=== PATIENT | female | born 1960 | race Caucasian/White ===

== ENCOUNTER 2022-12-30 22:48 | Emergency (ER) | payer OTHER, SELFPAY ==
--- NOTE | 2022-12-30 22:51 | ECG_ITS ---
Test Reason : CHEST PAIN Blood Pressure : / mmHG Vent. Rate : 077 BPM Atrial Rate : 077 BPM P-R Int : 132 ms QRS Dur : 084 ms QT Int : 374 ms P-R-T Axes : 039 072 033 degrees QTc Int : 423 ms Normal sinus rhythm Nonspecific ST abnormality Abnormal ECG No previous ECGs available Referred By: Generic ED Physician Electronically Signed By:ABEL CABRERA MD
[2022-12-30 22:53] VITALS: BP 134/87; PULSE 75; RESP 20; TEMP 36.8; O2SAT 96; BMI 24.3
[2022-12-30 23:12] LABS: MANUAL DIFF FLAG NO
[2022-12-30 23:14] LABS: Basophils Percent Auto 0.2 % (0-2); Eosinophils Absolute Auto 0.4 X10*3/uL (0.0-0.4); Eosinophils Percent Auto 4.9 % (0-4); Hematocrit 38.3 % (37.0-47.0); Hemoglobin 12.7 g/dl (12.0-16.0); Imm Gran Abs Auto 0.02 X10*3/uL (0.00-0.03); Imm Gran Pct Auto 0.2 % (0.0-0.4); Lymphocytes Absolute Auto 2.8 X10*3/uL (1.2-4.9); Lymphocytes Percent Auto 31.3 % (20-40); Mean Corpuscular HGB Conc 33.2 g/dl (31.0-35.0); Mean Corpuscular Hemoglobin 30.2 pg (27.0-33.0); Mean Corpuscular Volume 91.2 fL (80.0-98.0); Mean Platelet Volume 8.4 fL (9.4-12.3); Monocytes Absolute Auto 0.9 X10*3/uL (0.1-1.2); Monocytes Percent Auto 9.6 % (2-11); Neutrophils Absolute Auto 4.8 x10*3/uL (2.0-8.3); Neutrophils Percent Auto 53.8 % (45-73); Platelet Count 245 X10*3/uL (160-400); White Blood Count 8.8 X10*3/uL (4.8-10.8)
[2022-12-30 23:30] LABS: Alanine Aminotransferase 22 U/L (0-31); Albumin Level 4.3 g/dL (3.5-5.0); Alkaline Phosphatase 85 U/L (39-117); Anion Gap 12 (12-20); Aspartate Amino Transferase 17 U/L (5-31); Bilirubin Total 0.2 mg/dL (0.0-1.0); Blood Urea Nitrogen 14 mg/dL (9-16); Calcium 9.4 mg/dL (8.4-10.2); Carbon Dioxide 26 mmol/L (22-29); Chloride 106 mmol/L (96-108); Creatinine Clr Calc Pharmacy 69.3; Estimated Glomerular Filt Rate > 60; Glucose Random 120 mg/dL (60-115); Potassium 3.9 mmol/L (3.3-5.1); Sodium 140 mmol/L (135-145); Total Protein 7.2 g/dL (6.5-8.0)
--- NOTE | 2022-12-30 23:34 | ED.CHESTPAIN ---
HPI - Chest Pain General Chief Complaint: Chest Pain Stated Complaint: heart attack? Time Seen by Provider: 12/30/22 23:31 Source: patient Mode of arrival: ambulatory Limitations: no limitations History of Present Illness HPI narrative: Patient with history of anxiety, coronary artery disease status post stent placement 2010 for atypical chest pain comes here for feeling of bees under the skin starting from the left arm with the left lower extremity which seems to be same when she had stent placed in 2010 denies any chest patient seems very anxious but she says that happened after she started having this feeling no shortness of breath no chest pain no diaphoresis no nausea/vomiting Related Data Allergies Allergy/AdvReac Type Severity Reaction Status Date / Time Penicillins [PCN] Allergy Unknown Verified 12/30/22 22:53 sulfamethoxazole Allergy Unknown Verified 12/30/22 22:53 [From Bactrim] trimethoprim [From Bactrim] Allergy Unknown Verified 12/30/22 22:53 Review of Systems Review of Systems: Yes all other systems are reviewed and are negative [facility] Past Medical History Medical History (Updated 12/31/22 @ 02:02 by Florin Tyler MD) Coronary disease Anxiety Surgical History (Updated 12/31/22 @ 00:03 by Florin Tyler MD) Stented coronary artery Social History Social History Smoked in Last 30 Days: Yes Use of substances other than those prescribed or required for medical reasons: No Advance Directives: No Advance Directives Information Provided: Yes Physical Exam Vital Signs: Vital Signs: Last Vital Signs Temp 97.9 F 12/31/22 02:07 Pulse 61 12/31/22 02:07 Resp 16 12/31/22 02:07 BP 111/56 L 12/31/22 02:07 Pulse Ox 97 12/31/22 00:04 O2 Del Method Room Air 12/31/22 00:04 BMI result Body Mass Index 24.3 Appearance: Alert. Oriented X3. No acute distress. Anxious Eyes: PERRLA, no pallor ENT: Pharynx normal. Oral Mucosa moist Neck: Normal inspection. Neck supple. CVS: Normal heart rate and rhythm. Pulses normal. Respiratory: No respiratory distress. Equal air entry bilateral, no wheezing/rales/rhonchi Abdomen: Soft and nontender. Bowel sounds are present, no mass palpable, no CVA tenderness Skin: Skin warm and dry. Normal skin color. Normal skin turgor. Extremities: No lower extremity edema. No calf tenderness Neuro: Oriented X 3. No motor deficit. Medical Decision Making Medical Decision Making [facility] Narrative: Atypical chest pain 2 sets of cardiac enzymes negative EKG without ischemic changes discharge patient home advised to follow with PCP Differential Diagnosis Differential Diagnoses: The differential diagnosis associated with the presentation includes ACS/anxiety Admission/Observation Consideration of admission/observation: Escalation of care including admission/observation considered Lab Data [facility] Lab Attestation statement: I reviewed the patient's lab results. 12/30/22 23:07 12/30/22 23:07 Labs: Lab Results 12/30/22 12/31/22 Range/Units 23:07 01:04 WBC 8.8 (4.8-10.8) X10*3/uL RBC 4.20 (4.20-5.50) X10*6/uL Hgb 12.7 (12.0-16.0) g/dl Hct 38.3 (37.0-47.0) % MCV 91.2 (80.0-98.0) fL MCH 30.2 (27.0-33.0) pg MCHC 33.2 (31.0-35.0) g/dl RDW 12.0 (11.0-16.0) % Plt Count 245 (160-400) X10*3/uL MPV 8.4 L (9.4-12.3) fL Immature Gran % (Auto) 0.2 (0.0-0.4) % Neut % (Auto) 53.8 (45-73) % Lymph % (Auto) 31.3 (20-40) % Huron % (Auto) 9.6 (2-11) % Eos % (Auto) 4.9 H (0-4) % Baso % (Auto) 0.2 (0-2) % Lymph # (Auto) 2.8 (1.2-4.9) X10*3/uL Huron # (Auto) 0.9 (0.1-1.2) X10*3/uL Eos # (Auto) 0.4 (0.0-0.4) X10*3/uL Baso # (Auto) 0.0 (0.0-0.2) X10*3/uL Abs Immat Gran (auto) 0.02 (0.00-0.03) X10*3/uL Absolute Neuts (auto) 4.8 (2.0-8.3) x10*3/uL Absolute Nucleated RBC 0.000 (0.0-0.012) X10*3/uL Nucleated RBC % (auto) 0.0 (0.0-0.2) /100WBC Sodium 140 (135-145) mmol/L Potassium 3.9 (3.3-5.1) mmol/L Chloride 106 (96-108) mmol/L Carbon Dioxide 26 (22-29) mmol/L Anion Gap 12 (12-20) BUN 14 (9-16) mg/dL Creatinine 0.71 (0.5-1.4) mg/dL Estim Creat Clear Calc 69.3 Estimated GFR > 60 Random Glucose 120 H (60-115) mg/dL Calcium 9.4 (8.4-10.2) mg/dL Total Bilirubin 0.2 (0.0-1.0) mg/dL AST 17 (5-31) U/L ALT 22 (0-31) U/L Alkaline Phosphatase 85 (39-117) U/L Troponin I High Sens < 2.7 < 2.7 (<3.5-17.0) ng/L Total Protein 7.2 (6.5-8.0) g/dL Albumin 4.3 (3.5-5.0) g/dL Independent Interpretation I performed an independent interpretation of an: EKG Interpretation: Normal sinus rhythm heart rate 77 beats per minute normal interval normal axis no acute STT changes no acute ischemic Discharge Plan Discharge Clinical Impression: Atypical chest pain Patient Disposition: Home, Self-Care Instructions: Chest Pain (ED) Additional Instructions: Unlikely you have a coronary event Follow with graduating machine operator/PCP for further evaluation Interventions: ED Discharge Assessment Last Done: 12/31/22 02:12 Discharge Date/Time: 12/31/22 02:37
[2022-12-30 23:39] LABS: Troponin-I High Sensitivity < 2.7 ng/L (<3.5-17.0)
--- NOTE | 2022-12-31 | PC.NURSE ---
provider into assess pt. pt resting in bed.
[2022-12-31 00:04] VITALS: BP 112/67; PULSE 71; RESP 13; TEMP 36.9; O2SAT 97
--- NOTE | 2022-12-31 00:47 | PC.NURSE ---
pt oob walking to bathroom with a steady gait, no sob .
[2022-12-31 01:29] LABS: Troponin-I High Sensitivity < 2.7 ng/L (<3.5-17.0)
[2022-12-31 02:07] VITALS: BP 111/56; PULSE 61; RESP 16; TEMP 36.6
--- OUTSIDE RECORDS SUMMARY | 2022-12-31 02:10 | XMS_ITS | Continuity of Care Document ---
Author Name Unknown Organization [facility] Address [address] [place] [address]- Care Team Providers Care Necktie Stitcher Name Role Phone Patricia Madden Primary Care Physician Encounter [facility] [place] Date(s): 12/23/21 - 12/30/21 [facility] [address] [facility] [place] [address]- Attending Physician: Toñito Jaramillo DO Admitting Physician: Toñito Jaramillo DO Referring Physician: Mervat Pritchard MD Allergies, Adverse Reactions, Alerts Substance Reaction Severity Status codeine Active amoxicillin Active penicillin Active sulfADIAZINE Persistent Moderate Active Bactrim Active Immunizations Given and Recorded Vaccine Date Status Refusal Reason pneumococcal 23-valent vaccine 08/21/10 Given Medications amLODIPine 5 mg oral tablet 5 mg, 1, tablet, By Mouth, Daily, # 30 tablet, Refills 0, Maintenance, 12/23/21 11:11:00 EDT, Partial fill upon patient request if the prescription is for a schedule II opioid drug. Start Date: 12/23/21 Status: Ordered aspirin 81 mg oral tablet, chewable 1 tablet = 81 mg, Chew, Daily, # 30 tablet, 3 Refills, Maintenance, Chew Tablet Start Date: 08/22/10 Status: Ordered atorvastatin 80 mg oral tablet 1 tablet = 80 mg, By Mouth, Daily, # 30 tablet, 5 Refills, Maintenance, 12/23/21 11:12:00 EDT, Tablet, Partial fill upon patient request if the prescription is for a schedule II opioid drug. Start Date: 12/23/21 Status: Ordered citalopram 40 mg oral tablet 1 tablet = 40 mg, By Mouth, Daily, 0 Refills, Maintenance Start Date: 08/19/10 Status: Ordered ezetimibe 10 mg oral tablet 1 tablet = 10 mg, By Mouth, Daily, # 30 tablet, 0 Refills, Maintenance, 12/23/21 11:12:00 EDT, Tablet, Partial fill upon patient request if the prescription is for a schedule II opioid drug. Start Date: 12/23/21 Status: Ordered metFORMIN 500 mg oral tablet 1 tablet = 500 mg, By Mouth, 2 times a day, # 60 tablet, 0 Refills, Maintenance, 12/23/21 11:13:00 EDT, Tablet, Partial fill upon patient request if the prescription is for a schedule II opioid drug. Start Date: 12/23/21 Status: Ordered metoprolol 50 mg oral tablet, extended release 50 mg, 1, tablet, By Mouth, Daily, # 30 tablet, Refills 0, Maintenance, 12/23/21 11:12:00 EDT, Partial fill upon patient request if the prescription is for a schedule II opioid drug. Start Date: 12/23/21 Status: Ordered Vital Signs Most recent to oldest [Reference Range]: 1 Height 157 cm (12/23/21 11:09 AM) Oxygen Saturation [94-100 %] 98 % (12/23/21 11:09 AM) Pulse Rate [55-90 bpm] 58 bpm (12/23/21 11:09 AM) Blood Pressure [90-138/55-84 mm Hg] 96/5 6mm Hg (12/23/21 11:09 AM) Respiratory Rate [16-30 br/min] 16 br/mi n (12/23/21 11:09 AM) Mode of Delivery (Oxygen) Room air (12/23/21 11:09 AM) Blood pressure sites Arm, left (12/23/21 11:09 AM) Patient Care team information Care Team Personnel Name: Patricia Madden Position: Reference Physician Member Role: PCP Address: Address: [address] [place] [address], [address] [place] [address]- Care Team Related Persons Name: ORALIA HOWELL Address: home [address] [place] [id number]
--- OUTSIDE RECORDS SUMMARY | 2022-12-31 02:10 | XMS_ITS | Continuity of Care Document ---
Author Name Unknown Organization [facility] Address [address] [place] [address]- Care Team Providers Care Inventory Control Specialist Name Role Phone Patricia Madden Primary Care Physician Encounter [facility] [place] Date(s): 03/04/22 - 04/03/[address] [address] Attending Physician: Jojo Barnett Admitting Physician: AdmtrJojo Referring Physician: AdmtrJojo Allergies, Adverse Reactions, Alerts Substance Reaction Severity [...] opioid drug. Start Date: 12/23/21 Status: Ordered Patient Care team information Care Team Personnel Name: Patricia Madden Position: Reference Physician Member Role: PCP Address: Address: [address] [place] [address], [address] [place] [address]- Care Team Related Persons Name: ORALIA HOWELL Address: home [address] [place] [address]
--- OUTSIDE RECORDS SUMMARY | 2022-12-31 02:10 | XMS_ITS | Continuity of Care Document ---
Author Name Unknown Organization [facility] Address [address] [place] [address]- Care Team Providers Care Club Former Name Role Phone Patricia Madden Primary Care Physician Encounter [facility] Date(s): 01/02/22 - 03/22/22 [facility] [address] [place] [address]- Attending Physician: Toñito Jaramillo DO Admitting Physician: Toñito Jaramillo DO Referring Physician: Not on Staff, Referring MD Allergies, Adverse Reactions, Alerts Substance Reaction [...] Reference Physician Member Role: PCP Address: Address: [address] [place] [address], [address] [place] [address]- Care Team Related Persons Name: ORALIA HOWELL Address: [place] [address]
--- OUTSIDE RECORDS SUMMARY | 2022-12-31 02:10 | XMS_ITS | Continuity of Care Document ---
Author Name Unknown Organization [facility] Address [address] [place] [address]- Care Team Providers Care Program Services Assistant Name Role Phone Patricia Madden Primary Care Physician Encounter [facility] [place] Date(s): 02/10/22 - 02/10/[address] [address]- Discharge Disposition: A-D/C Home Attending Physician: Toñito Jaramillo DO Admitting Physician: Toñito Jaramillo DO Referring Physician: Toñito Jaramillo DO Allergies, Adverse Reactions, Alerts Substance Reaction Severity Status codeine Active amoxicillin Active Bactrim Active sulfADIAZINE Persistent Moderate Active penicillin Active Immunizations Given and Recorded Vaccine Date [...] opioid drug. Start Date: 12/23/21 Status: Ordered Results Radiology Reports * Exam Date Time Procedure Performing Provider Status 02/10/22 10:14 AM MM Breast Specimen Left Nataly Villa; Auth (Verified) Notes: (MM Breast Specimen Left) Reason For Exam: adh;Specimen Collection RESULT: MM Breast Specimen Left LEFT BREAST SPECIMEN RADIOGRAPH HISTORY: Atypical ductal hyperplasia and flat epithelial atypia, stereotactic biopsy performed 11/27/2021, status post seed localization and excision. FINDINGS: A single specimen contains a radioactive seed and a clip from the prior biopsy. IMPRESSION: The area of interest is contained within the specimen. Findings were called to Dr Jaramillo in the operating room 02/10/2022 10:20 AM. WSN: [id number] Ordering Physician: Toñito Jaramillo Dictated By: Shirley Martinez MD Dictated Date/Time: 02/10/22 10:20 am Reviewed By: Shirley Martinez MD Signed By: Shirley Martinez MD Signed Date/Time: 02/10/22 10:20 am Transcribed By: JULIO CESAR Plate Fitter Date/Time: 02/10/22 10:16 am Birads: Vital Signs Most recent to oldest [Reference Range]: 1 2 3 Height 155 cm (02/10/22 8:57 AM) Weight 56.7 kg (02/10/22 8:57 AM) Oxygen Saturation [94-100 %] 97 % (02/10/22 11:40 AM) 97 % (02/10/22 11:15 AM) 100 % (02/10/22 11:05 AM) Pulse Rate [55-90 bpm] 69 bpm (02/10/22 8:57 AM) Body Mass Index [18.5-24.99 kg/m2] 23.6 kg/m2 (02/10/22 8:57 AM) Blood Pressure [90-138/55-84 mm Hg] 115/65mm Hg (02/10/22 11:15 AM) 130/59mm Hg (02/10/22 11:05 AM) 143/69mm Hg *H* (02/10/22 11:00 AM) Respiratory Rate [16-30 br/min] 18 br/min (02/10/22 11:15 AM) 25 br/min (02/10/22 11:05 AM) 12 br/min *L* (02/10/22 11:00 AM) Temperature [96.8-100.4 DegF] 97.4 DegF (02/10/22 11:00 AM) 97.0 DegF (02/10/22 8:57 AM) Liters per Minute 6 L/min (02/10/22 11:00 AM) Mode of Delivery (Oxygen) Room air (02/10/22 11:40 AM) Room air (02/10/22 11:15 AM) Room air (02/10/22 11:05 AM) Blood pressure sites Arm, right (02/10/22 11:15 AM) Arm, right (02/10/22 11:05 AM) Arm, right (02/10/22 11:00 AM) Temperature Route Temporal (02/10/22 11:00 AM) Temporal (02/10/22 8:57 AM) Dry Weight 56.7 kg (02/10/22 8:57 AM) Weight Obtained Via Standing scale (02/10/22 8:57 AM) Dry Weight Obtained Via Standing scale (02/10/22 8:57 AM) Note * Clif JORDAN, Yu Pritchard: PERFORM Event Display: Patient Education/Instruction Authored Date: Inpatient Adult Discharge Instructions [address] [address] Name: PETER GASPAR : 1960 Visit: 02/10/2022 08:19:00 Current Date: 02/10/2022 11:09 Account: [id number] Inpatient Adult Discharge Instructions We would like to thank you for allowing us to assist you with your healthcare needs. The following includes patient education materials and information regarding your injury/illness. Our entire staffstrives to provide an excellent experience for our patients and their families. PLEASE ENSURE YOU FOLLOW-UP PER THE INSTRUCTIONS BELOW! ?? YOUR OPINION IS IMPORTANT TO US! Please complete the survey you may receive by mail or email. Your feedback will be used to make improvements to the healthcare experiences of our patients and their families. Surveys are administered by [employer]. ?? If further treatment with your primary care physician or another doctor is recommended, it is important for you to keep the appointment. Call your primary care physician or return to the Emergency Department immediately if your condition worsens, fails to improve, or new symptoms develop. If you need to find a doctor, you can call [facility] [employer] for a referral at [phone] or toll free at [phone] or log in to [email or web address].. ?? You can view and manage your care through the patient portal or by using a health care gianna of your choosing. [employer] is a website that allows you to securely view your medical information including your hospital discharge summary, office visit summaries, medications and follow-up visits. You can also request appointments, renew medications, and request access to your medical information using a health care gianna of your choosing, or just ask a question. You can enroll at [email or web address] or register during your next office visit. You have been discharged from [facility], Patient Care Unit: [facility]. If you have any questions regarding these instructions after you leave, please call us and we will be happy to assist you. [facility] Your Care Team Attending Physician Toñito Jaramillo DO Consulting Alfonso Tamayo DO Reason for Admission ATYPICAL DUCATL HYPERLASIA Tests Performed Below is a partial list of the tests performed during your hospitalization. You may have had other tests and procedures not included in this list. Please discuss all test results with your provider. MM Breast Specimen Left Primary Care Provider Patricia Madden Advance Directive Health Care Proxy on File No No qualifying data available. Discharge Vitals Temperature: 97.4 DegF Height: 155 cm Pulse Rate: 69 bpm Weight: 56.7 kg Respiratory Rate: 25 br/min Body Mass Index: 23.6 kg/m2 Systolic Blood Pressure: 130 mm Hg Body surface area: 1.56 Diastolic Blood Pressure: 59 mm Hg ?? Oxygen Saturation: 100 % ?? Studies Pending All tests and labs ordered during this hospital stay have been completed unless listed below. Please discuss all pending results with your provider listed above in these instructions. ?? No incomplete studies found What to do next Instructions From Your Doctor Discharge Orders Please remove dressing in 48 hours, please leave any steri-strips on until your post op appt. Afteryou remove your dressing you may shower, please let the water run over your incision and then pat your incision dry. No strenuous activity, and no lifting anything greater than 10 pounds until you are cleared from your surgeon.? You may use Tylenol 500 mg every 4 hours or 650 mg every 6 hours for pain control. You may add in Motrin 400-600 mg every 6 hours as needed starting tomorrow. ?? Please wear your supportive bra while out of bed, you may use your own supportive bra if you do notlike the one provided. Please make sure that the bra does not have wires or is a push up bra. You may leave the bra off if your laying in bed. ?? Please ice your incisions for 10-20 minutes at a time every 1-2 hours, this will help with pain andswelling.?? Scheduled Follow-Up Appointments Wednesday 10:20 AM EST ?? With: Toñito Jaramillo DO Where: [facility] [address] [address]- Discharge Medications CHASITY PETER :1960 Visit Date:02/10/2022 Medications: Please continue your medications until treatment is completed or stopped by your provider. Medications not listed below should be discontinued. Discuss any questions related to medications with your provider. What How Much When Instructions Next Dose Unchanged Amlodipine (amLODIPine 5 mg oral tablet) 1 tab(s) Oral Daily Unchanged Aspirin (aspirin 81 mg oral tablet, chewable) 1 tab(s) Chew Daily Unchanged Atorvastatin (atorvastatin 80 mg oral tablet) 1 tab(s) Oral Daily Unchanged Citalopram (citalopram 40 mg oral tablet) 1 tab(s) Oral Daily Unchanged Ezetimibe (ezetimibe 10 mg oral tablet) 1 tab(s) Oral Daily Unchanged Metformin (metFORMIN 500 mg oral tablet) 1 tab(s) Oral Twice a day Unchanged Metoprolol (metoprolol 50 mg oral tablet, extended release) 1 tab(s) Oral Daily Allergies (NKA means No Known Allergies) sulfADIAZINE Bactrim amoxicillin codeine penicillin Education Materials Below is the list of Educational Leaflet Providered with your Discharge Instructions. Valuables and Belongings I fully understand and agree that [facility] accepts no responsibility for all my personal property including clothing, toilet articles, radios, jewelry, dentures, hearing aids, rings, money, or any other property that is in my possession or is brought to me after admission. I understand certain valuables may be placed in a hospital safe for a short period of time. I understand that the hospital is not liable for loss or damage due to accident, fire, or other natural occurrence while said property is in the safe. I accept full responsibility for any personal property that I keep with me, and will not hold the hospital responsible in case of loss or disappearance. I acknowledge that i have been encouraged to send valuables and belongings home. ?? Date for Pt to Sign Valuables/Belongings: 02/10/22 08:57:00 ?? Valuables & Belongings ?? Clothes Electronic devices Jewelry Monetary Items Personal devices Miscellaneous Medications (Valuables) Valuables at Bedside Pants, Shirt, Shoes, Undergarments ? Valuables Sent Home ? Valuables Sent to Security ? Other Discharge Information ? Pulmonary Rehab Status?? Pulmonary Rehab Discharge Status?? Respiratory Rate: 25 br/min ? Common Emergency Awareness Tips IS IT A STROKE? Act FAST and Check for these signs: FACE Does the face look uneven? ARM Does one arm drift down? SPEECH Does their speech sound strange? TIME Call at any sign of stroke ?? Heart Attack Signs Chest discomfort: Most heart attacks involve discomfort in the center of the chest and lasts more than a few minutes, or goes away and comes back. It can feel like uncomfortable pressure, squeezing, fullness or pain. Discomfort in upper body: Symptoms can include pain or discomfort in one or both arms, back, neck, jaw or stomach. Shortness of breath: With or without discomfort. Other signs: Breaking out in a cold sweat, nausea, or lightheaded. Remember, MINUTES DO MATTER. If you experience any of these heart attack warning signs, call to get immediate medical attention! ?? Smoking can increase your chances of developing chronic health problems and can cause harmful effects to other family members in your house. If you smoke, you are strongly encouraged to quit. Please call [facility] [employer] at [phone] or [phone]) or log in to [email or web address] for referrals to smoking cessation programs. ?? The National Suicide Prevention Hotline is available 14/09 if you or someone you know needs to find a reason to keep living. By calling 8-539-537-[employer] (2409) you'll be connected to a skilled, trained counselor at a crisis center in your area. INPATIENT DISCHARGE INSTRUCTIONS SIGNATURE PAGE PETER GASPAR Location:[facility] Registration Date and Time:02/10/2022 08:19 EST Primary Care Physician: Patricia Madden, I PETER GASPAR, have received the above patient education materials/instructions and have verbalized understanding. If ambulance or transport services are being used I further acknowledge beinggiven a choice of service. ?? If you need to contact me, please call me at this number: . Patient/Rn Faculty Name: Patient/Rn Faculty Signature: Relationship to Patient: Witness Name/Signature: Date: * BHSPowerBRIAN garcía S: TRANSCRIBE Shirley Martinez MD: VERIFY Event Display: Result: Authored Date: LEFT BREAST SPECIMEN RADIOGRAPH HISTORY: Atypical ductal hyperplasia and flat epithelial atypia, stereotactic biopsy performed 11/27/2021, status post seed localization and excision. FINDINGS: A single specimen contains a radioactive seed and a clip from the prior biopsy. IMPRESSION: The area of interest is contained within the specimen. Findings were called to Dr Jaramillo in the operating room 02/10/2022 10:20 AM. WSN: [id number] Ordering Physician: Toñito Jaramillo Dictated By: Shirley Martinez MD Dictated Date/Time: 02/10/22 10:20 am Reviewed By: Shirley Martinez MD Signed By: Shirley Martinez MD Signed Date/Time: 02/10/22 10:20 am Transcribed By: CSTien Plate Fitter Date/Time: 02/10/22 10:16 am Birads: Patient Care team information Care Team Personnel Name: Jamie ALVARES , Patricia Saucedo Position: Reference Physician Member Role: PCP Address: Address: [address] [place] [address], [address] [place] [address]- Care Team Related Persons Name: ORALIA HOWELL Address: home [address] [place] [phone]
--- OUTSIDE RECORDS SUMMARY | 2022-12-31 02:10 | XMS_ITS | Continuity of Care Document ---
Author Name Unknown Organization [facility] Address [address] [place] [address]- Care Team Providers Care Bench Hand Name Role Phone Patricia Madden Primary Care Physician [place] [facility] [place]22 - 01/31/22 [facility] [address] [place] [address]- Allergies, Adverse Reactions, Alerts Substance Reaction Severity [...] Reference Physician Member Role: PCP Address: Address: [address] [place] [address], [facility] [address] [place] [address]- Care Team Related Persons Name: ORALIA HOWELL Address: [place] [address]
--- OUTSIDE RECORDS SUMMARY | 2022-12-31 02:10 | XMS_ITS | Continuity of Care Document ---
Author Name Unknown Organization [facility] Address [address] [place] [address]- Care Team Providers Care Food Safety Coordinator Name Role Phone Patricia Madden Primary Care Physician Encounter [facility] [place] Date(s): 03/06/22 - 08/27/22 [facility] [address] [facility] [facility] [address]- Attending Physician: Emily Sherwood MD Admitting Physician: Emily Sherwood MD Referring Physician: Toñito Jaramillo DO Allergies, Adverse [...] Reference Physician Member Role: PCP Address: Address: [address] [place] [address], [facility] [address] [place] [address]- Care Team Related Persons Name: ORALIA HOWELL Address: [place] [address]
--- OUTSIDE RECORDS SUMMARY | 2022-12-31 02:10 | XMS_ITS | Continuity of Care Document ---
Author Name Unknown Organization [facility] Address [address] [place] [address]- Care Team Providers Care Quality Assurance Assessor Name Role Phone Patricia Madden Primary Care Physician [place] [facility] [place] 01/06/22 - 02/05/22 [facility] [address] [place] [address]- Allergies, Adverse Reactions, Alerts Substance Reaction Severity Status codeine Active amoxicillin Active Bactrim Active penicillin Active sulfADIAZINE Persistent Moderate Active Immunizations Given and Recorded Vaccine Date [...] Reference Physician Member Role: PCP Address: Address: [address] [place] [address], [facility] [address] [place] [address]- Care Team Related Persons Name: ORALIA HOWELL Address: [place] [address]
--- OUTSIDE RECORDS SUMMARY | 2022-12-31 02:10 | XMS_ITS | Patient Health Record ---
Author Name Unknown Organization [facility] Address [address] [place] [address] Care Team Providers Care Diesel Mechanic Apprentice Name Role Phone PritchardMervat coelho Primary Care Provider Patricia Ayala Unavailable [phone] Mainor Garciaah Unavailable [phone] Chavo Kelley Unavailable [phone] ALLERGIES Allergen (clinical drug ingredient) Drug/Non Drug Allergy documented on EMR Reaction Allergy Type Onset Date Status codeine codeine depressed Drug Allergy Active dust/mold/cats/do gs/shellfish (uncoded) Unknown Allergy Active Sulfa vomiting/diarrh ea Drug Allergy Active amoxicillin amoxicillin Unknown Drug Allergy Act garry sulfamethoxazole / trimethoprim Bactrim Unknown Drug Allergy Active RESULTS Component Value Reference Range Notes Foot Exam (DM) Reviewed date:05/02/2022 10:49:28 AM Interpretation: Performing Lab: Notes/Report: Foot Exam date passed bilat. lesions none bilat. monofilament test great sensation bilat. Pedal pulses positive bilat. hemoglobin A1C Reviewed date:05/02/2022 10:50:15 AM Interpretation: Performing Lab: Notes/Report: HgbA1C 5.7% MICROALBUMIN Reviewed date:05/04/2022 03:53:19 PM Interpretation: Performing Lab:Testing performed or reported by [facility], a Service of [facility], [address] [place] [address] Mariel Mosqueda MD, Acquisition Advisor [facility]# [id number] Notes/Report: MICRO-ALBUMIN 13.0 (<20) MG/L The urine microalbumin test is designed to monitor renal function. When screening for Bence Bird proteinuria, urine electrophoresis is recommended. MALB/CREAT RATIO 6.6 (0-20) MG/GM URINE CREAT FOR MICRO ALBUMIN 197.2 COVID-19 (NOVEL CORONAVIRUS) , PCR Drive Through Reviewed date:07/25/2022 09:22:18 PM Interpretation: Performing Lab:Testing performed or reported by [facility], [place] [address] Eliezer De Anda MD, Acquisition Advisor [facility]# [id number] Notes/Report: COVID-19 PCR RESULT NEGATIVE (NEG) 2019-novel Coronavirus (2019-nCoV) not detected by real-time RT-PCR. Note: If clinical suspicion for COVID-19 is high, continue to maintain precautions and consider repeat testing. Result reported to the [facility]. To prevent errors in diagnosis, test results should be interpreted in the context of clinical findings and other laboratory data. Rare polymorphisms exist that could lead to false-negative or false-positive results. If results obtained do not match the clinical findings, additional testing should be considered. This test has been authorized by the FDA under an Emergency Use Authorization (EUA) for use by authorized laboratories. Testing performed by real time PCR utilizing [employer] SARS-CoV-2 test. COVID-19 PCR SPECIMEN SOURCE NASAL Rapid Covid 19 Reviewed date:07/24/2022 08:27:09 PM Interpretation:Negative Performing Lab: Notes/Report: Negative hemoglobin A1C Reviewed date:10/06/2022 02:19:45 PM Interpretation: Performing Lab: Notes/Report: HgbA1C 6.1% MICROALBUMIN Reviewed date:10/07/2022 03:36:12 PM Interpretation: Performing Lab:Testing performed or reported by [facility], a Service of [facility], [address] [place] [address] Eliezer De Anda MD, Acquisition Advisor [facility]# [id number] Notes/Report: MICRO-ALBUMIN <12.0 (<20) MG/L The urine microalbumin test is designed to monitor renal function. When screening for Bence Bird proteinuria, urine electrophoresis is recommended. MALB/CREAT RATIO Unable to calculate (0-20) MG/GM URINE CREAT FOR MICRO ALBUMIN 206.0 CYTOPATHOLOGY Reviewed date:10/10/2022 06:49:49 AM Interpretation: Performing Lab:Testing performed or reported by [facility], a Service of [facility], [address] [place] [address] Eliezer De Anda MD, Acquisition Advisor [facility]# [id number] Notes/Report: Patient Name: PETER GASPAR Patient : 1960 (Age: 62) Lab Collection Date: 10/06/2022 Accession Date: 10/06/2022 Sign Out Date: 10/08/2022 Tissue Source: 1: [facility] AIDE PAP TEST, CERVICAL: Final Diagnosis: NEGATIVE FOR INTRAEPITHELIAL LESION OR MALIGNANCY. Satisfactory for evaluation. Endocervical/transformati on zone ABSENT. Procedures/Addenda: Human Papilloma Virus, High-Risk (Any Dx) Status: Signed Out Interpretation: Negative Methodology: [employer] Aptima HPV mRNA assay (Nucleic Acid Amplification Test, NAAT). Clinical History: Date of Last Menstrual Period: not available Menstrual History: not available Contraceptive History: not available Ancillary Testing: HPV (any dx) Case imaged by the [employer] Imaging System with manual rescreening or review. Performed at [facility] department of Cytology, [facility] Clinical History (other): Z01.419 Phone #: [phone], On-Call Pathologist: [id number] REASON FOR REFERRAL No Information MEDICATIONS Medication SIG (Take, Route, Frequency, Duration) Notes Start Date End Date Status ezetimibe 10 mg 1 tab(s) orally once a day for 90 days Active Advair Diskus 250 mcg-50 mcg 1 INH inhaled 2 times a day for 90 days 09/07/2022 Active amLODIPine 5 mg 1 tab(s) orally once a day for 90 days 03/13/2019 Active metoprolol 50 mg 1 tab(s) orally 2 ti mes a day for 90 days Active atorvastatin 80 mg 1 tab(s) orally once a day for 90 days Active betamethasone topical dipropionate 0.05% 1 gianna applied topically 2 times a day for 14 days 10/08/2021 Active ALPRAZolam 0.5 mg 1 tab(s) orally 1 ti mes a day NEEDED for 30 days PRN 02/08/2019 Active citalopram 40 mg TAKE 1 TABLET BY JASSI TH ONCE A DAY for 90 days Active metFORMIN 500 mg 1 tab(s) orally 2 ti mes a day for 90 days 09/06/2020 Active L-Theanine 200mg 1 qhs oral capsule Ac tive fluticasone nasal 50 mcg/inh 1 spray(s) in each nostril once a day for 90 days 02/03/2021 Active vitamin B complex 1 PO QD Ac tive Wixela Inhub 250 mcg-50 mcg 1 INH inhale d 2 times a day for 30 day(s) 08/26/2022 Active IMMUNIZATIONS Vaccine Route Administration Date Status Comme nts Fluzone Purchased IM Intramuscular 12/25/2016 Administered Flu Vaccine; History Unknown 02/28/2018 Administered Prevnar 13 History Unknown 01/02/2014 Administered Pneumovax 23; History Unknown 11/18/2010 Administered COVID-19 Vaccine (Moderna), History Unknown 07/20/2020 Administered COVID-19 Vaccine (Moderna), History Unknown 08/17/2020 Administered FLULAVAL PURCHASED IM Intramuscular 12/03/2020 Administere d COVID-19 Vaccine (Moderna), History Unknown 07/20/2020 Administered SOCIAL HISTORY Sex Assigned At : Social History Observation Description Sex Assigned At Unknown PROBLEMS Problem Type ICD Code Onset Dates Problem Status W/U Status Risk SNOMED Code Notes Problem Abnormal mammogram (R92.8) Active confirmed Abnormal mammogram (437370585) Problem COPD, unspecified (J44.9) Active confirmed Chronic obstructive pulmonary disease (87859751) Problem Hyperlipidemia , mixed (E78.2) Active confirmed Mixed hyperlipidemia (388868742) Problem Dysthymic disorder (F34.1) Active confirmed Dysthymia (87276480) Problem Emphysema, other (J43.8) Active confirmed Emphysema (37682461) Problem Emphysema, unspecified (J43.9) Active confirmed Emphysema (10491853) Problem Skin Tag (Q82.8) Active confirmed Skin tag (514055912) Problem HTN (I10) Active confirmed Hypertension (39705955) Problem Generalized anxiety disorder (F41.1) Active confirmed Generalized anxiety disorder (82246497) anxiety level has been reduced since addition of L-theanine 200mg qd to Celexa 40mg qd. Rare use of prn Xanax 0.5mg prn Problem CAD (I25.10) Active confirmed Coronary artery disease (79086050) Encounters Encounter Location Date Provider Diagnosis [address] [address] 09/18/2022 Patricia Ayala [address] [address] 10/06/2022 Patricia Ayala Adult physical [facility] Z00.00 ; Encounter for screening for malignant neoplasm of colon Z12.11 ; DM II with hyperglycemia E11.65 ; HTN I10 ; CAD I25.10 ; Hyperlipidemia, mixed E78.2 and PAP SMEAR Z01.[address] [address] 03/13/2022 Patricia Ayala [address] [address] 04/10/2022 Patricia Ayala [facility] [address] [address] 05/01/2022 Patricia Ayala DM II with hyperglycemia E11.65 ; HTN I10 ; CAD I25.10 and Hyperlipidemia, mixed E78.[address] [facility] [address] [address] 10/27/2022 Patricia Ayala [address] [address] 07/24/2022 Chavo Allie Nasal congestion R09.81 ; COPD with Acute Exacerbation J44.1 and Emphysema, other J43.8 [place] [address] [place] [address] 01/01/2022 Patricia Ayala [place] [address] [place] [address] 05/01/2022 Patricia Ayala Fatigue R53.83 [place] [address] [place] [address] 06/08/2022 Patricia Ayala [place] [address] [place] [address] 07/16/2022 Patricia Ayala [place] [address] [place] [address] 08/24/2022 Patricia Ayala [place] [address] [place] [address] 11/04/2022 Patricia Ayala [facility] [address] [place] [address] 12/04/2022 Patricia Ayala [facility] [address] [place] [address] 02/09/2022 Susie Radha COPD, unspecified J44.9 and Tobacco use Z72.0 [facility] [address] [place] [address] 01/12/2022 Patricia Ayala [facility] [address] [place] [address] 01/13/2022 Patricia Ayala [facility] [address] [place] [address] 02/08/2022 Patricia Ayala [facility] [address] [place] [phone] 02/23/2022 Patricia Ayala COPD, unspecified J44.9 [facility] [address] [place] [address] 05/12/2022 Patricia Ayala [facility] [address] [place] [address] 07/14/2022 Patricia Ayala [facility] [address] [place] [address] 07/16/2022 Patriica Ayala [facility] [address] [place] [address] 08/18/2022 Patricia Ayala [facility] [address] [place] [address] 08/21/2022 Patricia Ayala [facility] [address] [place] [address] 09/04/2022 Patricia Ayala [facility] [address] [place] [address] 09/06/2022 Patricia Ayala [facility] [address] [place] [address] 10/13/2022 Patricia Ayala [facility] [address] [place] [address] 10/16/2022 Patricia Ayala [facility] [address] [place] [address] 11/17/2022 Patricia Ayala [facility] [address] [place] [address] 12/05/2022 Patricia Ayala [facility] [address] [place] [address] 12/05/2022 Mervat Pritchard [facility] [address] [place] [phone] 12/08/2022 Patricia Ayala [facility] [address] [place] [address] 12/11/2022 Patricia Ayala ASSESSMENTS Encounter Date Diagnosis Assessment Notes Treatment Notes Treatment Clinical Notes 10/06/2022 Adult physical NORMAL (ICD-10 - Z00.00) 10/06/2022 Encounter for screening for malignant neoplasm of colon (ICD-10 - Z12.11) 05/01/2022 DM II with hyperglycemia (ICD-10 - E11.65) 05/01/2022 HTN (ICD-10 - I10) 07/24/2022 COPD with Acute Exacerbation (ICD-10 - J44.1) copd exacerbation, possible walking pna- advised acute steroid burst and zpack, fu if worsening or not improving. 07/24/2022 Nasal congestion (ICD-10 - R09.81) 05/01/2022 Fatigue (ICD-10 - R53.83) 02/09/2022 COPD, unspecified (ICD-10 - J44.9) Really needs in house eval, discussed with pt, will trial above inhalers in interim, counseled on proper use. Reviewed red flags if sx persist/worsen despite inhaler use. Smoking cessation counseling. 02/09/2022 Tobacco use (ICD-10 - Z72.0) 02/23/2022 COPD, unspecified (ICD-10 - J44.9) 10/06/2022 DM II with hyperglycemia (ICD-10 - E11.65) 05/01/2022 CAD (ICD-10 - I25.10) 07/24/2022 Emphysema, other (ICD-10 - J43.8) 10/06/2022 HTN (ICD-10 - I10) 05/01/2022 Hyperlipidemia, mixed (ICD-10 - E78.2) 10/06/2022 CAD (ICD-10 - I25.10) 10/06/2022 Hyperlipidemia, mixed (ICD-10 - E78.2) 10/06/2022 PAP SMEAR (ICD-10 - Z01.419) 10/06/2022 Other [facility] flow sheet reveiwed and updated PLAN OF TREATMENT Pending Test Test Name Order Date Spirometry 08/30/2018 Colonoscopy 10/06/2022 PAP, cervical; HPV Hybrid Capture High R isk DNA Probe any Dx 09/01/2019 PAP, cervical; HPV Hybrid Capture High R isk DNA Probe any Dx 07/17/2016 PAP, cervical; HPV Hybrid Capture High R isk DNA Probe any Dx 10/06/2022 HEMOGLOBIN A1C 03/25/2021 HSCRP 05/08/2016 HSCRP 07/23/2017 HSCRP 08/30/2018 COMPREHENSIVE METABOLIC PANL 07/23/2017 COMPREHENSIVE METABOLIC PANL 05/08/2016 COMPREHENSIVE METABOLIC PANL 08/30/2018 COMPREHENSIVE METABOLIC PANL 03/25/2021 LIPID PANEL 07/23/2017 LIPID PANEL 08/30/2018 LIPID PANEL 03/25/2021 LIPID PANEL 05/08/2016 HOMOCYSTEINE,PLASMA/SERUM 05/08/2016 TSH WITH REFLEX TO T4 08/30/2018 TSH WITH REFLEX TO T4 07/23/2017 MICROALBUMIN 08/30/2018 MICROALBUMIN 03/25/2021 Vitamin D25 OH 07/17/2016 Vitamin D25 OH 07/23/2017 Vitamin D25 OH 08/30/2018 CBC AUTO DIFF 03/25/2021 CBC AUTO DIFF 08/30/2018 CBC AUTO DIFF 07/23/2017 Covid-19 PCR (use this one) 07/24/2022 Diagnostic Mammogram Right ( 3d Tomosynthesis) with Breast Ultrasound Rightt; to perform Ultrasound-Guided Aspiration and/or Breast Biopsy if warranted 11/19/2021 Next Appt Details Provider Name:Patricia dean, 04/06/2023 01:30:00 PM, [address] [place] [address], [phone], Provider Name:Patricia dean, 11/30/2023 02:00:00 PM, [address] [place] [address], [phone], Insurance Providers Payer Name Payer Address Payer Phone Subscriber Number Group Number Insured Name Patient Relationship to Insured Coverage Start Date Coverage End Date [employer] [address] [place] [phone] [id number] PETER GASPAR Self - patient is the insured MEDICAL (GENERAL) HISTORY Medical History History ICD Code [place] in 2010 Stent put in, collapses, grew collateral arteries Emphysema COVID Feb 2020 Surgical History Surgery Date(Month/Year) Stent put in 03/2010 Hospitalization History Reason Date(Month/Year) [facility] [place] 2010 stent collapsed-[facility] 2012
--- OUTSIDE RECORDS SUMMARY | 2022-12-31 02:10 | XMS_ITS | Continuity of Care Document ---
Author Name Unknown Organization [facility] Address [address] [place] [address]- Care Team Providers Care Outcome Analyst Name Role Phone Patricia Madden Primary Care Physician [place] [facility] [place] [facility] [place](s[place] 02/20/22 - 03/22/22 [facility] [address] [place] [address]- Attending Physician: Jojo Barnett Admitting Physician: Jojo Barnett Referring Physician: AdmtrJojo Allergies, Adverse Reactions, Alerts [...] Reference Physician Member Role: PCP Address: Address: [address] [place] [address], [address] [place] [address]- Care Team Related Persons Name: ORALIA HOWELL Address: [place] [address]
--- OUTSIDE RECORDS SUMMARY | 2022-12-31 02:10 | XMS_ITS | Continuity of Care Document ---
Author Name Unknown Organization [facility] Address [address] [place] [address]- Care Team Providers Care Wire Frame Lamp Shade Maker Name Role Phone Patricia Madden Primary Care Physician Encounter [facility] [id number] Date(s): 07/28/22 - 08/27/22 [facility] [address] [facility] [place] [address]- Attending Physician: Jojo Barnett Admitting Physician: AdmtrJojo Referring Physician: Admtr ArDona Allergies, Adverse Reactions, Alerts Substance Reaction Severity [...] Reference Physician Member Role: PCP Address: Address: [address] [place] [address], [address] [place] [address]- Care Team Related Persons Name: ORALIA HOWELL Address: [place] [address]
--- NOTE | 2022-12-31 02:11 | PC.NURSE ---
Pt a&o, no sob or chest pain at this time, Reviewed discharge instructions with pt. pt verbalized understanding.
== END 2022-12-31 02:37 | disposition home or self-care (01) ==
LOC: HO.ED 12-31 02:08
PROVIDERS: Emergency Provider Internal Medicine
DX: R07.89 Other chest pain (principal); F41.9 Anxiety disorder, unspecified
CPT/HCPCS: 36415; 80053; 84484; 85025; 93005; 99283; 99285